=== PATIENT | male | born 1975 | race Caucasian/White ===

== ENCOUNTER 2019-08-17 08:06 | Day surgery (SDC) | payer OTHER ==
[2019-08-16 10:54] VITALS: BMI 45.1
[2019-08-17] MEDS ORDERED: AFRIN NASAL MIST 15 ML BOT ONE ×2 (09:16→09:47)
[2019-08-17] MEDS ORDERED: Acetaminophen 500 MG TAB ONE (09:16)
[2019-08-17] MEDS ORDERED: Lidocaine 1% w/Epinephrine 1:100K 20 ML VIAL ONE (09:47)
[2019-08-17] MEDS ORDERED: Glycopyrrolate 0.2 MG/ML 5 ML SYRINGE ONE (10:17)
[2019-08-17] MEDS ORDERED: Succinylcholine Chloride 20 MG/ML 10 ml SYRINGE FS ONE (10:17)
[2019-08-17] MEDS ORDERED: Fentanyl 100 MCG/2 ML VIAL ONE ×2 (10:17→11:58)
[2019-08-17] MEDS ORDERED: Ondansetron PF 4 MG/2 ML Vial ONE (10:17)
[2019-08-17] MEDS ORDERED: PROPOFOL 200 MG/20 ML VIAL ONE (10:17)
[2019-08-17] MEDS ORDERED: Rocuronium Bromide 10 MG/ML (10ML VIAL) ONE (10:17)
[2019-08-17] MEDS ORDERED: Midazolam HCl 2 mg/2 ml Vial ONE (10:17)
[2019-08-17] MEDS ORDERED: Dexamethasone 20 MG/5 ML VIAL ONE (10:17)
[2019-08-17] MEDS ORDERED: Lidocaine 1% PF 5 ML VIAL ONE (10:17)
[2019-08-17] MEDS ORDERED: HYDROcodone/Acetaminophen 5/325 mg Tablet ONE (13:25)
--- NOTE | 2019-08-18 09:55 | OP ---
DATE OF PROCEDURE: 08/17/2019 PREOPERATIVE DIAGNOSES: 1. Chronic rhinosinusitis. 2. Bilateral nasal polyposis. 3. Nasal obstruction. 4. Bilateral inferior turbinate hypertrophy. POSTOPERATIVE DIAGNOSES: 1. Chronic rhinosinusitis. 2. Bilateral nasal polyposis. 3. Nasal obstruction. 4. Bilateral inferior turbinate hypertrophy. PROCEDURES PERFORMED: 1. Bilateral endoscopic sinus surgery, total ethmoidectomy with sphenoidotomy and removal of tissue. 2. Bilateral endoscopic sinus surgery, frontal sinusotomy. 3. Bilateral endoscopic sinus surgery, maxillary antrostomy with removal of tissue. 4. Bilateral inferior turbinate submucosal resection. ESTIMATED BLOOD LOSS: 20 mL. COMPLICATIONS: None. ANESTHESIA: GETA. DESCRIPTION OF PROCEDURE: The patient was taken to the operating room, placed supine on the table. General endotracheal anesthesia was obtained by the anesthesia staff. Tube was secured in the left lower lip. The patient was then placed in a beach chair position, was prepped and draped for standard nasal procedures. Following this, the Afrin pledgets was removed from the nasal cavity. 1% lidocaine with 1:100,000 epinephrine was injected into the inferior turbinate and middle turbinates and lateral nasal wall bilaterally. Following this, the middle turbinates were gently medialized using a [place] elevator and a 0-degree endoscope was then used to visualize the uncinate process bilaterally. The uncinate process was then anteriorly fractured using a ball-ended probe and was then removed using the microdebrider and up-biting Blakesley forceps bilaterally. Following this, the natural maxillary sinus ostia were identified bilaterally and were widened using the curved microdebrider and straight Blakesley forceps. Polyps and polypoid tissue were removed from this area bilaterally. Following this, ethmoidal sinuses were identified and the ethmoidal bulla was punctured on its medial and inferior aspect using the 0-degree microdebrider bilaterally. Following this, the ethmoidal bulla was removed using the 0-degree microdebrider and up-biting Blakesley forceps bilaterally. Following this, the grand lamella was identified and a 0-degree microdebrider was used to puncture the grand lamella into the posterior ethmoidal cells. Working from posterior to anterior, the ethmoidal cells were opened, keeping the cribriform plate in direct view. Following this, the sphenoid sinuses were identified through the previous ethmoidectomies as the superior turbinate attached to the posterior nasal wall. Staying just medial and inferior to this attachment, a sphenoidotomy was created bilaterally using the 0-degree microdebrider. The sphenoidotomies were then widened in a medial and inferior direction using the 0-degree microdebrider. Polypoid tissue and the polyps were removed from the sphenoid sinuses bilaterally. Following this, a 45-degree endoscope was used to visualize the anterior ethmoidal cells and frontal recess area. The 40-degree microdebrider blade and the up-biting Blakesley forceps were then used to open the frontal sinus recess and frontal sinus ostia bilaterally. Following this, the inferior turbinates were punctured on the anterior inferior aspect and submucosal resection was performed of the anterior and inferior portions of the inferior turbinates bilaterally. Following this, the inferior turbinates were laterally fractured. The nasal cavity was irrigated, and NasoPore packing was placed within the middle meatus. The patient tolerated the procedure well. Job ID: [id number]
== END 2019-08-17 14:51 | disposition home or self-care (01) ==
LOC: SDC 08:06
PROVIDERS: ATTEND Otolaryngology Plastic Surgery within the Head & Neck
PROC: 099R8ZZ Drainage of Left Maxillary Sinus, Via Natural or Artificial Opening Endoscopic (ICD-10-PCS; principal; 2019-08-17)
PROC: 09BL8ZZ Excision of Nasal Turbinate, Via Natural or Artificial Opening Endoscopic (ICD-10-PCS; principal; 2019-08-17)
PROC: 099W8ZZ Drainage of Right Sphenoid Sinus, Via Natural or Artificial Opening Endoscopic (ICD-10-PCS; principal; 2019-08-17)
PROC: 09BT8ZZ Excision of Left Frontal Sinus, Via Natural or Artificial Opening Endoscopic (ICD-10-PCS; principal; 2019-08-17)
PROC: 09BV8ZZ Excision of Left Ethmoid Sinus, Via Natural or Artificial Opening Endoscopic (ICD-10-PCS; principal; 2019-08-17)
PROC: 09BS8ZZ Excision of Right Frontal Sinus, Via Natural or Artificial Opening Endoscopic (ICD-10-PCS; principal; 2019-08-17)
PROC: 099Q8ZZ Drainage of Right Maxillary Sinus, Via Natural or Artificial Opening Endoscopic (ICD-10-PCS; principal; 2019-08-17)
PROC: 09BU8ZZ Excision of Right Ethmoid Sinus, Via Natural or Artificial Opening Endoscopic (ICD-10-PCS; principal; 2019-08-17)
PROC: 099X8ZZ Drainage of Left Sphenoid Sinus, Via Natural or Artificial Opening Endoscopic (ICD-10-PCS; principal; 2019-08-17)
DX: J32.4 Chronic pansinusitis (principal); J34.2 Deviated nasal septum; J34.3 Hypertrophy of nasal turbinates; J33.9 Nasal polyp, unspecified; J34.89 Other specified disorders of nose and nasal sinuses; Z79.899 Other long term (current) drug therapy; Z79.51 Long term (current) use of inhaled steroids; Z91.040 Latex allergy status
CPT/HCPCS: 88304; C2625; J1100; J2001; J2250; J2405; J2704; J3010